=== PATIENT | female | born 1990 | race African-American/Black ===

== ENCOUNTER 2016-10-26 09:36 | Emergency (ER) | payer OTHER ==
[2016-10-26 09:40] VITALS: BP 133/82
--- NOTE | 2016-10-26 10:41 | ED Physician Documentation ---
History of Present Illness - Stated complaint Stated Complaint: THROAT/EAR PX - Chief complaint Chief Complaint: Heent - Additonal information Additional information: hx from pt 26 y/o f sore throat R ear pain for a few days no sick contacts no foreign travel no cough NVD denies preg Review of Systems Constitutional: denies: Fever Ears: reports: Ear pain Throat: reports: Sore throat Respiratory: denies: Cough GI: denies: Vomiting : denies: Now [facility]GA PD PAST MEDICAL HISTORY - Past Medical History Past Medical History: No - Past Surgical History Past Surgical History: No - Present Medications Home Medications: Ambulatory Orders Medication Instructions Recorded Confirmed Amoxicillin 500 mg PO Q8H #30 capsule 10/26/16 - Allergies Allergies/Adverse Reactions: Allergies Allergy/AdvReac Type Severity Reaction Status Date / Time No Known Drug Allergies Allergy Verified 10/26/16 09:40 - Social History Does the pt smoke?: No Smoking Status: Never smoker Does the pt have substance abuse?: No - Immunizations Immunizations are current?: Yes PD ED PE NORMAL - Vitals Vital signs reviewed: Yes - General General: Alert and oriented X 3 - HEENT HEENT: PERRL. No: Ears normal (R AOM - dull cloudy fluid and mild erythema), Pharynx benign (enlarged right tonsil with exudate) - Neck Neck: Other (no pain with tracheal manip). No: No adenopathy (anterior no posterior) - Cardiac Cardiac: RRR - Respiratory Respiratory: No respiratory distress, Clear bilaterally - Abdomen Abdomen: Soft, Non tender, No organomegaly Results - Vitals Vitals: Vital Signs - 24 hr 10/26/16 09:38 Temperature 36.6 C Heart Rate 76 Respiratory 16 Rate Blood Pressure 133/82 H O2 Saturation 100 Oxygen O2 Source Room air Departure - Departure Disposition: Home, Self Care Clinical Impression: Otitis media Qualifiers: Otitis media type: suppurative Laterality: right Chronicity: acute Recurrence: not specified as recurrent Spontaneous tympanic membrane rupture: without spontaneous rupture Qualified Code(s): H66.001 - Acute suppurative otitis media without spontaneous rupture of ear drum, right ear Pharyngitis Qualifiers: Pharyngitis/tonsillitis etiology: unspecified etiology Qualified Code(s): J02.9 - Acute pharyngitis, unspecified Condition: Good Instructions: ED Otitis Media Acute Adult Follow-Up: [facility] [Provider Group] Prescriptions: Amoxicillin 500 mg PO Q8H #30 capsule Comments: please follow up with your PMD to get your blood pressure rechecked - it was high today Forms: Activity restrictions
[2016-10-26] MEDS ORDERED: IBUPROFEN 400 MG TABLET PO STA (10:42)
[2016-10-26] MEDS ORDERED: IBUPROFEN 400 MG TABLET PO ONE (10:49)
== END 2016-10-26 11:05 | disposition home or self-care (01) ==
LOC: ED 09:36
DX: H66.001 Acute suppurative otitis media without spontaneous rupture of ear drum, right ear (principal); J02.9 Acute pharyngitis, unspecified; R03.0 Elevated blood-pressure reading, without diagnosis of hypertension
CPT/HCPCS: 99283; A9270

== ENCOUNTER 2017-03-08 14:25 | Emergency (ER) | payer OTHER ==
[2017-03-08] MEDS ORDERED: DEXAMETHASONE 10 MG/ML VIAL PO STA (15:25)
[2017-03-08] MEDS ORDERED: DEXAMETHASONE 10 MG/ML VIAL ONE (15:33)
[2017-03-08 15:45] LABS: RAPID STREP SCREEN REAGENT QC YELLOW (YELLOW)
--- NOTE | 2017-03-08 15:52 | ED Physician Documentation ---
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 She has had her flu immunization. Review of Systems Constitutional: reports: Fever, Chills, Myalgias, Fatigue, Sweats Eyes: denies: Decreased vision Ears: denies: Ear pain Nose: reports: Rhinorrhea / runny nose, Congestion Throat: reports: Sore throat Cardiac: denies: Chest pain / pressure, Palpitations Respiratory: reports: Cough. denies: Dyspnea GI: denies: Abdominal Pain, Nausea, Vomiting : denies: Dysuria PD PAST MEDICAL HISTORY - Past Surgical History Past Surgical History: No - Present Medications Home Medications: Ambulatory Orders Medication Instructions Recorded Confirmed Azithromycin [Zithromax] 250 mg PO DAILY #6 tablet 03/08/17 - Allergies Allergies/Adverse Reactions: Allergies Allergy/AdvReac Type Severity Reaction Status Date / Time No Known Drug Allergies Allergy Verified 10/26/16 09:40 - Social History Does the pt smoke?: No Smoking Status: Never smoker Does the pt have substance abuse?: No - Immunizations Immunizations are current?: Yes PD ED PE NORMAL - Vitals Vital signs reviewed: Yes (Hypertensive) - General General: Alert and oriented X 3, No acute distress, Well developed/nourished - HEENT HEENT: Atraumatic, PERRL, EOMI, Other (The left TM is inflamed the right is clear the pharynx is with 2+ tonsils with exudate) - Neck Neck: Supple, no meningeal sign, No bony TTP - Cardiac Cardiac: RRR, No murmur - Respiratory Respiratory: No respiratory distress, Clear bilaterally - Abdomen Abdomen: Soft, Non tender - Back Back: No CVA TTP, No spinal TTP - Derm Derm: Normal color, Warm and dry, No rash - Extremities Extremities: No deformity, No edema - Neuro Neuro: No motor deficit, No sensory deficit, Normal speech Eye Opening: Spontaneous Motor: Obeys Commands Verbal: Oriented GCS Score: 15 - Psych Psych: Normal mood, Normal affect Results - Vitals Vitals: Vital Signs - 24 hr 03/08/17 03/08/17 14:36 15:58 Temperature 36.7 C Heart Rate 94 96 Respiratory 18 18 Rate Blood Pressure 135/91 H 145/79 H O2 Saturation 99 100 Oxygen O2 Source Room air - Labs Labs: Laboratory Tests 03/08/17 15:25 Group A Strep Rapid Negative PD MEDICAL DECISION MAKING - ED course Complexity details: reviewed results, re-evaluated patient, considered differential, d/w patient, d/w family ED course: OM with pharyngitis. Pt has negative rapid strep and she is treated with decadron and zithromax. Departure - Departure Disposition: 01 Home, Self Care Clinical Impression: Otitis media Qualifiers: Otitis media type: suppurative Chronicity: acute Laterality: left Recurrence: not specified as recurrent Spontaneous tympanic membrane rupture: without spontaneous rupture Qualified Code(s): H66.002 - Acute suppurative otitis media without spontaneous rupture of ear drum, left ear Condition: Stable Instructions: ED Otitis Media Acute Adult Follow-Up: [facility] [Provider Group] Prescriptions: Azithromycin [Zithromax] 250 mg PO DAILY #6 tablet Comments: Today in the Emergency Department your blood pressure was elevated. This can happen from the stress of the visit itself, from a current illness or circumstance or from uncontrolled hypertension. If you take blood pressure medications take your usual mediations, have your blood pressure re-checked in an appropriate setting and follow up any elevation with your primary care doctor. Forms: Activity restrictions Discharge Date/Time: 03/08/17 16:00
[2017-03-08 16:00] VITALS: BP 145/79
== END 2017-03-08 16:00 | disposition home or self-care (01) ==
LOC: ED 14:25
DX: H66.002 Acute suppurative otitis media without spontaneous rupture of ear drum, left ear (principal); R03.0 Elevated blood-pressure reading, without diagnosis of hypertension
CPT/HCPCS: 87070; 87430; 99283